=== PATIENT | female | born 1995 | race Caucasian/White ===

== ENCOUNTER 2024-10-26 16:33 | Emergency (ER) | payer OTHER, SELFPAY ==
[2024-10-26 16:38] VITALS: BP 141/80; PULSE 67; RESP 16; TEMP 36.6; O2SAT 100
--- OUTSIDE RECORDS SUMMARY | 2024-10-26 16:38 | XMS_ITS | Encounter Summary ---
Author Organization [facility] Address [address] [place] [address] Phone Care Team Providers Care Beautician Apprentice Name Role Phone Amador Santo MD Primary Care Provider [phone] Colt Brooks MD PhD Unavailable Bri Woo MD Unavailable Reason for Visit * Reason Onset Date Comments Advice Only 10/26/2024 Appointment 10/26/2024 Dizziness 10/26/2024 Encounter Details Date Type Department Care Team (Late st Contact Info) Description 10/26/2024 Nurse Triage [facility] Central Call Center [address] [place] [id number] Amador Santo MD [address] [place] [address] Advice Only; Appointment; Dizziness Social History Tobacco Use Types Packs/Day Years Used Date Smoking Tobacco: Never Smokeless Tobacco: Never Alcohol Use Standard Drinks/Week Comments Yes 0 (1 standard drink = 0.6 oz pur e alcohol) Rare PHQ-2 Answer Date Recorded Total Score - Questions 1-9 0 05/22 Comments No Sex and Gender Information Value Date Recorded Sex Assigned at Not on file 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 with dizziness BACKGROUND: Patient is contacting PCP office. Patient as vomiting 10/25/24 but no longer vomiting. Patient states she is dizzy and needs to hold on to the wall when walking. ASSESSMENT: Symptom Description / Location: Dizziness Nauseous Sweaty Body aches Cough - little yellow mucous Headache Treatment / Response: none Body aches Last temperature: 100.1 at 6:00am 10/26/24. Patient alert and oriented. RECOMMENDATION: Caller agreeable to highest disposition listed: . ED/ UCC now Patient was informed another person should drive her. Care advice provided per triage guideline. Caller verbalized understanding. Medication, allergies, and pharmacy reviewed. - See care advice and disposition for Guideline. First positive answer recorded, all responses to prior questions were negative. If symptoms increase, change or if new symptoms develop, call your health care provider or call back. Recommendations were based on caller information and is not a diagnosis. Verified and reviewed all triage information with caller. * Telephone Encounter - Vera Dodson - 10/26/2024 4:05 PM CDT Symptoms: Weakness, Excessive Sweating, Fever, Vomiting, Body Aches Outcome: Schedule an appointment within 3 days Reason: Caller denied all higher acuity questions The caller accepted this outcome. Caller Denied: * Weakness on only one side of body or face that started within the past 24 hours * Chest pain now * Can't stand (unless normally can't stand) * Acting confused * Passed out * Trouble walking * Trouble breathing through the mouth * Blood in the vomit * Severe headache * Started within the past 3 days * Getting worse * No urine (pee) in past 8 hours * Fever over 104 F (40 C) * Vomited 1 to 5 times and has lasted 48 hours documented in this encounter Plan of Treatment Not on file documented as of this encounter Visit Diagnoses Not on filedocumented in this encounter Additional Health Concerns Assessment Noted Time PHQ-9 Depression Total Score: 0 06/02/19 4:00 PM CDT documented as of this encounter Care Teams Beautician Apprentice Relationship Specialty Start Date End Date Amador Santo MD [address] [place] [address] PCP - General Internal Medicine 06/02/19 Colt Brooks MD PhD [address] [place] [address] Consulting Physician Endocrinology 06/02/19 Bri Woo MD [address] [place] [address] Consulting Physician Obstetrics & Gynecology 06/02/19 documented as of this encounter
--- OUTSIDE RECORDS SUMMARY | 2024-10-26 16:38 | XMS_ITS | Clinical Summary ---
Author Organization [facility] Address [address] [place] [address] Care Team Providers Care Derrick Worker Name Role Phone Amador Santo MD Primary Care Provider + Allergies No known active allergies Medications desogestreL-ethi nyl estradioL (APRI) 0.15-0.03 mg per tabletIndication s:PCOS (polycystic ovarian syndrome) Take 1 tablet by mouth daily 28 tablet 5 05/02/2021 Active spironolactone (ALDACTONE) 50 mg tabletIndication s:Hirsutism Take 1 tablet (50 mg total) by mouth 2 (two) times a day 60 tablet 4 05/02/2021 Active Active Problems Problem Noted Date Diagnosed Date PCOS (polycystic ovarian syndrome) 02/03/2018 Molluscum contagiosum infection 12/10/2011 Overview (06/26/2016): Molluscum contagiosum 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 Overview (06/27/2016): Cold sore Fracture of proximal end of femur 12/10/2011 Overview (06/27/2016): Avulsion fracture of hip 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): Learning disability Medical examinations/reports status 12/10/2011 Overview (06/27/2016): Health care maintenance Immunizations Immunization Administration Dates Next Due DTaP 11/08/1998, 6,09/08/1994,06/20 HPV, Quadrivalent 05/13/2008,02/01/2008,11/18/19 08 Hep B, Adolescent or Pediatric 06/20/1994,1993,1993 Hib (HbOC) 05/20/1995,09/08/1994,06/20/1994 Influenza, Quadrivalent, Spl it, Intramuscular 04/04/2016 MMR 11/08/1998,12/23/1994 Meningococcal MCV4P (Menactra) 05/21/2012 Meningococcal Polysaccharide (Menomune) 10/17/2008 OPV 11/08/1998, 5,09/08/1994,06/20 Tdap 11/18/2007 Surgical History Surgery Date Site/Laterality Comments NO PAST SURGERIES Medical History Medical History Date Comments Chlamydia 2014 Family History Medical History Relation Name Comments Polycystic ovary syndrome Mother Relation Name Status Comments Mother Social History Tobacco Use Types Packs/Day Years Used Date Smoking Tobacco: Never Smokeless Tobacco: Never Alcohol Use Standard Drinks/Week Comments Yes 0 (1 standard drink = 0.6 oz pur e alcohol) 1 x month Personal Safety Answer Date Recorded Getting School Help Needed Not on file 05/22 Comments No Sex and Gender Information Value Date Recorded Sex Assigned at Not on file 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 2013 - elective pitocin I OL. . [facility]. Last Filed Vital Signs Vital Sign Reading Time Taken Comments Blood Pressure 136/76 06/18/2021 3:12 PM CDT Pulse 123 11/07/2020 4:08 PM CDT Temperature 36.7 C (98.1 F) 11/07/2020 4:08 PM CDT Respiratory Rate 16 11/07/2020 4:08 PM CDT Oxygen Saturation 98% 11/07/2020 4:08 PM CDT Inhaled Oxygen Concentration - - Weight 80.3 kg (177 lb) 06/18/2021 3:12 PM CDT Height 175.3 cm (5' 9) 11/07/2020 4:08 PM CDT Body Mass Index 26.14 11/07/2020 4:08 PM CDT Plan of Treatment Not on file Insurance [facility] H[facility]PPO Address: [address] [address] [place] [address] [facility] CHO[facility] H[facility]/PPO Address: [address] [address] [place] [address] Care Teams Derrick Worker Relationship Specialty Start Date End Date Amador Santo MD [address] [place] [address] PCP - General Internal Medicine 06/18/21
--- OUTSIDE RECORDS SUMMARY | 2024-10-26 16:38 | XMS_ITS | Clinical Summary ---
Author Organization [facility] [address] [facility] Address [address] [place] [address] Care Team Providers Care Sample Paster Name Role Phone Teddy Camacho MD Primary Care Provider [phone] Social History Tobacco Use Types Packs/Day Years Used Date Smoking Tobacco: Never Assessed Comments Unknown Sex and Gender Information Value Date Recorded Sex Assigned at Not on file Legal Sex Female 10:09 AM CDT Gender Identity Not on file Sexual Orientation Not on file Plan of Treatment Health Maintenance Due Date Last Done Comments HPV/Cotest (21-29) 2014 DTAP/TDAP/TD VACCINES (6 - T d or Tdap) 11/17/2017 11/18/2007, 11/08/1998, 05/20/1995, Additional history exists CERVICAL CANCER SCREENING 12/22/2023 HPV/Cotest (30-65) 12/22/2023 PAP SMEAR 12/22/2023 INFLUENZA VACCINE (#1) 2024 04/04/2016 HEPATITIS B VACCINES Completed 06/20/1994, 01/28/1994, 1993 HPV VACCINES Completed 05/13/2008, 01/22, 11/18/2007 Insurance [facility] [id number] Member Subscriber Plan / Payer (Ef fective 2020-Present) Name:Rocio Melchor Relation to Subscriber:Spouse Name:AMITA MELCHOR Date of :1899 (Home) Address: [address] [place] [id number] Payer ID:[id number] (NAIC) Type:PPO Address: [facility] [id number] [place] [id number] Care Teams Sample Paster Relationship Specialty Start Date End Date Teddy Camacho MD [address] [place] [address] PCP - General Internal Medicine 08/28/18
--- OUTSIDE RECORDS SUMMARY | 2024-10-26 16:38 | XMS_ITS | Clinical Summary ---
Author Organization [facility] Address [address] [place] [address] Phone Care Team Providers Care Hand Buffer Name Role Phone Amador Santo MD Primary Care Provider [phone] Colt Brooks MD PhD Unavailable [phone] Bri Woo MD Unavailable [phone] Allergies No known active allergies Medications No known medications Active Problems Problem Noted Date Diagnosed Date PCOS (polycystic ovarian syndrome) Encounters Date Type Department Care Team Description 10/26/2024 Nurse Triage [facility] Central Call Center [address] [place] [address] Amador Santo MD Advice Only; Appointment; Dizziness from Last 3 Months Family History Medical History Relation Name Comments High Cholesterol Father No Known Problems Maternal Grandfather No Known Problems Maternal Grandmother No Known Problems Mother Heart Attack Paternal Grandfather No Known Problems Paternal Grandmother No Known Problems Sister 1 No Known Problems Sister 2 Defects Sister 3 sister born wi th extra pathway in the heart/ had to have surgery to correct Relation Name Status Comments Father Alive Maternal Grandfather Alive Maternal Grandmother Alive Mother Alive Paternal Grandfather Alive Paternal Grandmother Alive Sister 1 Alive Sister 2 Alive Sister 3 Alive Social History Tobacco Use Types Packs/Day Years Used Date Smoking Tobacco: Never Smokeless Tobacco: Never Tobacco Cessation:Counseling Given: Not Answered Alcohol Use Standard Drinks/Week Comments Yes 0 (1 standard drink = 0.6 oz pur e alcohol) Rare PHQ-2 Answer Date Recorded Total Score - Questions 1-9 0 05/22 Comments No Sex and Gender Information Value Date Recorded Sex Assigned at Not on file 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 Last Filed Vital Signs Vital Sign Reading Time Taken Comments Blood Pressure 110/70 12/30/2023 4:19 PM CDT Pulse 73 12/30/2023 4:19 PM CDT Temperature 36.9 C (98.4 F) 12/30/2023 4:19 PM CDT Respiratory Rate 18 12/30/2023 4:19 PM CDT Oxygen Saturation 98% 12/30/2023 4:19 PM CDT Inhaled Oxygen Concentration - - Weight 81.6 kg (180 lb) 12/30/2023 4:19 PM CDT Height 172.7 cm (5' 8) 12/30/2023 4:19 PM CDT Body Mass Index 27.37 12/30/2023 4:19 PM CDT Plan of Treatment Health Maintenance Due Date Last Done Comments Hepatitis C Virus (HCV) Screening 1993 TdaP Immunization 1993 Hepatitis B Immunization (1 of 3 - 19+ 3-dose series) 2012 Pap Smear 11/18/2020 11/18/2017 Human Papillomavirus (HPV) Immunization (1 - 3-dose SCDM series) 2020 SARS-COV-2 Immunization ( season) 2023 Cervical Cancer Screening (CCS) 12/22/2023 HPV/Cotest 12/22/2023 Influenza Immunization (#1) 2024 Respiratory Syncytial Virus (RSV) Immunization (Adult) (1 - 1-dose 75+ series) 2068 Meningococcal Immunization (ACWY) Aged Out No longer eligible based on patient's age to complete this topic Pneumococcal Immunization Combined Aged Out No longer eligible based on patient's age to complete this topic Rotavirus Immunization Aged Out No lo nger eligible based on patient's age to complete this topic Procedures Procedure Name Priority Date/Time Associated Diagnosis Comments PATHOLOGY CYTOLOGY [employer] Routine 11/18/2017 from Last 3 Months or Most Recently Relevant to Health Maintenance Results * PATHOLOGY CYTOLOGY [employer] (11/18/2017) Specimen of unknown material (specimen) Bri Woo MD PATHOLOGY/CYTOLOGY OR DERABLES Final Result from Last 3 Months or Most Recently Relevant to Health Maintenance Insurance [facility] Care Teams Hand Buffer Relationship Specialty Start Date End Date Amador Santo MD [address] [place] [address] PCP - General Internal Medicine 06/02/19 Colt Brooks MD PhD [address] [place] [address] Consulting Physician Endocrinology 06/02/19 Bri W[place] [address] [place] [address] Consulting Physician Obstetrics & Gynecology 06/02/19
--- OUTSIDE RECORDS SUMMARY | 2024-10-26 16:38 | XMS_ITS | Referral Summary ---
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
--- NOTE | 2024-10-26 17:10 | ED_ITS ---
HPI - Nausea/Vomiting/Diarrhea General Chief complaint: Nausea/Vomiting/Diarrhea Stated complaint: dizzy/aches/fatigue Time Seen by Provider: 10/26/24 17:10 Source: patient and RN notes reviewed Mode of arrival: ambulatory Limitations: no limitations History of Present Illness HPI Narrative: Thirty year nausea, vomiting, body aches, headache, and dizziness. Onset at last evening. Endorses temp up to 100.1 which she says has broke. Denies abdominal pain, urinary complaints, cough, shortness of breath or wheezing. Has not taken anything for symptoms. She is requesting a work note. Related Data Home Medications ?Medication ?Instructions ?Recorded ?Confirmed ?Last Taken ?Type No Home Medications 10/26/24 10/26/24 Unknown History Allergies Allergy/AdvReac Type Severity Reaction Status Date / Time No Known Allergies Allergy Verified 10/26/24 16:46 Review of Systems Review of Systems: CONSTITUTIONAL: reports body aches, fever, chills ENT: Denies rhinorrhea, congestion CARDIOVASCULAR: Denies chest pain, palpitations, or edema. RESPIRATORY: Denies cough or dyspnea. GASTROINTESTINAL: Endorses nausea, vomiting, Denies abdominal pain, diarrhea, hematochezia, melena, hematemesis GENITOURINARY: Denies dysuria, hematuria, or CVA tenderness. SKIN: Denies rash, itching, or wounds. NEUROLOGIC: reports headache All systems reviewed & are unremarkable except as noted in HPI and below PMFSH Comments At time of signature, I have reviewed and agree with nursing past medical, surgical, social and family history unless otherwise noted. Please see nursing chart for further information. There is no relevant family history pertinent to the presenting complaint Exam Narrative: GENERAL: mildly ill-appearing, and in no acute distress. EYES: EOMI. Conjunctivae normal. ENT: Mucous membranes pink and moist. CHEST: No respiratory distress. Clear to auscultation. HEART: Regular rate and rhythm. No murmur appreciated. Normal peripheral pulses. ABDOMEN: abd soft, nondistended, normal active bowel sounds. nontender abdomen; No guarding, rebound tenderness, asymmetry EXTREMITIES: Normal range of motion. No edema. SKIN: Warm, dry, no rash. Capillary refill normal. Normal skin turgor. NEURO: No focal deficits. Alert and oriented x3. PSYCH: Normal affect. Course Course Emergency Course: Patient is aware of diagnosis, understands and agrees to treatment plan. Anticipatory guidance given. Patient agrees to follow-up as directed and is aware of reasons to seek care at the emergency department. Portions of this record may have been created with voice recognition software Level of Care: Express Care Visit Vital Signs Vital signs: Vital Signs Temperature 97.8 F 10/26/24 16:38 Pulse Rate 67 10/26/24 16:38 Respiratory Rate 16 10/26/24 16:38 Blood Pressure 141/80 H 10/26/24 16:38 Pulse Oximetry 100 10/26/24 16:38 Oxygen Delivery Room Air 10/26/24 16:38 Temperature 97.8 F 10/26/24 16:38 Pulse Rate 67 10/26/24 16:38 Respiratory Rate 16 10/26/24 16:38 Blood Pressure 141/80 H 10/26/24 16:38 Pulse Oximetry 100 10/26/24 16:38 Oxygen Delivery Room Air 10/26/24 16:38 MDM - Nausea/Vomiting/Diarrhea MDM Narrative Medical decision making narrative: Discussed physical exam findings consistent with viral infection, patient declines viral testing at this time. She also declines ondansetron prescriptions.. Advised supportive measures and signs/symptoms to go to the ER. Pt is appropriate for outpt treatment and f/u. Differential Diagnosis Differential diagnosis: Likely food poisoning, gastroenteritis, drug-induced nausea and vomiting and dehydration Discharge Plan Discharge Clinical Impression: Viral infection Patient Disposition: Home Condition: Stable Instructions: Viral Syndrome (ED) Additional Instructions: Stay hydrated. Take small sips of fluid containing electrolytes frequently. Clear liquids (broth, jello, tea, sprite, pedialyte) [place] foods (bananas, rice, applesauce, toast, crackers) Avoid fatty, greasy, fried or spicy foods. Limit dairy until symptoms are improved. You should go to the hospital if you experience persistent nausea and vomiting that does not resolve and does not allow you to tolerate any food or fluids, fevers, increasing abdominal pain, persistent diarrhea, dizziness, fainting, or for any other concerns. Follow up with primary care provider in 3 days. Patient Language: Polish Prescriptions: No Action No Home Medications Follow-up/Referrals: Hansa,Amador Bowen MD [Primary Care Provider] - Stand Alone Forms: Work/School Release IP Time of Disposition: 17:16
== END 2024-10-26 17:18 | disposition home or self-care (01) ==
PROVIDERS: Emergency Provider Nurse Practitioner Family; PCP Internal Medicine
DX: B34.9 Viral infection, unspecified (principal)
CPT/HCPCS: 99202; G0463